=== PATIENT | male | born 1995 | race Caucasian/White ===

== ENCOUNTER 2020-11-09 15:24 | Observation (INO) | payer BC ==
[~2020-11-09 15:24] MED LIST: Iopamidol 370 76% 100 ML VIAL ONE
[2020-11-09] MEDS ORDERED: Cefepime 2 GM VIAL ONE (16:56)
[2020-11-09 17:09] LABS: #Basophils 0.1 thou/uL (0.0-0.2); #Eosinphils 0.2 thou/uL (0.0-0.7); #Lymphocytes 2.7 thou/uL (1.20-3.40); #Monocytes 0.7 thou/uL (0.11-0.59); #Neutrophils 6.2 thou/uL (1.40-6.50); %Basophils 0.8 % (0.0-1.0); %Eosinophils 2.2 % (0.0-10.0); %Lymphocytes 27.4 % (21.0-51.0); %Monocytes 7.5 % (0.0-10.0); %Neutrophils 62.1 % (42.0-75.0); Hemoglobin 15.4 g/dL (14.0-18.0); Mean Corpuscular HGB CONC 32.8 g/dL (32.0-36.0); Mean Corpuscular Hemoglobin 27.7 pg (27.0-31.0); Mean Corpuscular Volume 84.6 fL (78.0-98.0); Mean Platelet Volume 7.7 fL (7.4-10.4); Platelet Count 331 thou/uL (130-400); RBC Distribution Width 12.7 % (11.5-14.5); Red Blood Cell (RBC) Count 5.57 mill/uL (4.70-6.10)
[2020-11-09 17:30] LABS: Chloride 106 mmol/L (98-107); Potassium 4.2 mmol/L (3.5-5.1); Sodium 137 mmol/L (136-145)
[2020-11-09 17:31] LABS: ALT (SGPT) 42 U/L (8-55); AST (SGOT) 25 U/L (5-34); Albumin 4.1 g/dL (3.5-5.0); Alkaline Phosphatase 67 U/L (40-110); Anion Gap 13 mmol/L (10-20); BUN (Urea Nitrogen) 18 mg/dL (8.9-20.6); Bilirubin, Total 0.8 mg/dL (0.2-1.2); Calc. Creatinine Clearance 0 mL/min (70-130); Calcium 9.5 mg/dL (7.8-10.44); Carbon Dioxide 22 mmol/L (22-29); Globulin 3.7 g/dL (2.4-3.5); Glucose 94 mg/dL (70-105); Protein, Total 7.8 g/dL (6.0-8.3)
[2020-11-09] MEDS ORDERED: Vancomycin 1 GM/200 ML BAG ONE (17:53)
[2020-11-09 18:32] LABS: Bilirubin Negative (Negative); Blood, Urine Negative (Negative); Clarity Clear (Clear); Glucose, Urine (Dipstick) Normal (Negative); Ketone, Urine Negative (Negative); Leukocyte Negative Leu/uL (Negative); Nitrite Negative (Negative); Protein, Urine (Dipstick) 20 mg/dL (Neg-Trace); Urobilinogen Normal mg/dL (Less than 2); pH, Urine 5.5 (5.0-9.0)
[2020-11-09] MEDS ORDERED: Acetaminophen 650 MG Suppository PR PRN (20:10)
[2020-11-09] MEDS ORDERED: Acetaminophen 325 MG TAB PO PRN (20:10)
[2020-11-09 22:26] VITALS: BMI 49.1
[2020-11-10] MEDS ORDERED: Gabapentin 300 MG CAP PO SCH (01:45)
[2020-11-10] MEDS ORDERED: VANCOMYCIN 2 GRAM/400 ML BAG 2 GM in Premix Bag 1 BAG IVPB SCH (02:00)
[2020-11-10] MEDS ORDERED: Piperacillin/Tazobactam 3.375 GM in Sodium Chloride 0.9% 100 ML IVPB SCH (05:00)
[2020-11-10 06:22] LABS: #Eosinphils 0.2 thou/uL (0.0-0.7); #Lymphocytes 2.4 thou/uL (1.20-3.40); #Monocytes 0.9 thou/uL (0.11-0.59); #Neutrophils 5.6 thou/uL (1.40-6.50); %Basophils 0.1 % (0.0-1.0); %Eosinophils 2.4 % (0.0-10.0); %Lymphocytes 26.2 % (21.0-51.0); %Monocytes 9.6 % (0.0-10.0); %Neutrophils 61.7 % (42.0-75.0); Hemoglobin 14.1 g/dL (14.0-18.0); Mean Corpuscular HGB CONC 33.8 g/dL (32.0-36.0); Mean Corpuscular Hemoglobin 28.7 pg (27.0-31.0); Mean Corpuscular Volume 84.9 fL (78.0-98.0); Mean Platelet Volume 8.1 fL (7.4-10.4); Platelet Count 297 thou/uL (130-400); RBC Distribution Width 12.8 % (11.5-14.5); Red Blood Cell (RBC) Count 4.92 mill/uL (4.70-6.10); White Blood Cell (WBC) Count 9.1 thou/uL (4.8-10.8)
[2020-11-10 06:45] LABS: Anion Gap 15 mmol/L (10-20); BUN (Urea Nitrogen) 18 mg/dL (8.9-20.6); Calc. Creatinine Clearance 320 mL/min (70-130); Carbon Dioxide 22 mmol/L (22-29); Chloride 106 mmol/L (98-107); Glucose 99 mg/dL (70-105); Potassium 4.6 mmol/L (3.5-5.1); Sodium 138 mmol/L (136-145)
[2020-11-10 09:12] LABS: SARS-CoV-2 PCR by NAA Not Detected (NotDetected)
[2020-11-10] MEDS: Gabapentin 300 MG CAP PO SCH ×2 (09:14→20:49)
[2020-11-10] MEDS: valACYclovir 500 MG TAB PO SCH ×2 (09:14→20:49)
[2020-11-10 12:48] LABS: Syphilis Antibody Nonreactive (Nonreactive); Syphilis Antibody Index 0.06 S/CO (<1.00 Non-Reactive)
[2020-11-10 12:52] LABS: HBCM Index 0.11 S/CO (0-0.79); HBSAg Index 0.21 S/CO (0-0.99); HIV (1/2) Antibody/Antigen Non-Reactive (NonReactive); Hep A IgM AB Non-Reactive (NonReactive); Hep A IgM S/CO 0.18 S/CO (0-0.79); Hep B Surf Ag Non-Reactive S/CO (NonReactive); Hep C IgG Ab Non-Reactive (NonReactive); Hep C Index 0.27 S/CO (0-0.79); Hepatitis B Core IgM Abs Non-Reactive (NonReactive)
[2020-11-10] MEDS: Acetaminophen/Codeine 30-300mg Tablet PO PRN ×2 (16:20→20:50)
[2020-11-10] MEDS: Nystatin Powder 15 GM BOT TOP SCH (20:49)
[2020-11-11] MEDS: valACYclovir 500 MG TAB PO SCH (08:18)
[2020-11-11] MEDS: Nystatin Powder 15 GM BOT TOP SCH (08:18)
[2020-11-11 12:50] VITALS: BP 138/93; TEMP 98.2
[2020-11-12] MEDS ORDERED: Gabapentin 300 MG CAP PO SCH (09:00)
== END 2020-11-11 13:12 | disposition home or self-care (01) ==
LOC: ERS 15:24 → T4-A 19:21 → INTOOBSV 19:21
PROVIDERS: ADMIT Student in an Organized Health Care Education/Training Program; ATTEND Internal Medicine
DX: A60.02 Herpesviral infection of other male genital organs (principal); E66.01 Morbid (severe) obesity due to excess calories; Z68.42 Body mass index [BMI] 45.0-49.9, adult; Z79.899 Other long term (current) drug therapy; Z88.6 Allergy status to analgesic agent; Z20.822 Contact with and (suspected) exposure to COVID-19
CPT/HCPCS: 36415; 74177; 80048; 80053; 80074; 81003; 83605; 85025; 86780; 87040; 87070; 87205; 87389; 87635; 96365; 96367; G0378; J0692; J3370; Q9967; U0003; U0005